=== PATIENT | female | born 1965 | race Caucasian/White ===

== ENCOUNTER 2024-05-13 07:16 | Day surgery (SDC) | payer OTHER, SELFPAY ==
--- NOTE | 2024-05-13 07:30 | FL_ITS ---
[address] [address] Patient Name: LUZ MARIA BADILLO MRN: [id number] date: 1965 Sex: F Assigned Patient Location: MRI Current Patient Location: Accession/Order Number: [id number] Exam Date: 05/13/2024 08:00 Report Date: 05/14/2024 05:00 At the request of: JUSTIN ROSENTHAL Procedure: FL guided needle placement EXAMINATION: FL arthrogram hip, FL guided needle placement HISTORY: Left hip impingement syndrome M25.852 FLUORO DOSE: Cannot be calculated. mGy Reference air kerma (Ka,r) COMPARISON: No relevant comparison available. TECHNIQUE: An arthrogram was performed under fluoroscopic guidance using non-ionic contrast material in the usual sterile manner after obtaining informed consent. Standard level fluoroscopic mode of operation utilized. FINDINGS: JOINT: Left hip NEEDLE: 25 gauge, 3.5 spinal needle. MEDICATION: 2 mL buffered 1% lidocaine for subcutaneous anesthesia. Approximately 8 mL injected into joint space consisting of a mixture of 5 mL Omnipaque-240, 5 mL 1% Xylocaine and 0.2 mL Dotarem. TECHNIQUE: Anterior approach under fluoroscopic guidance. CLINICAL: Decreased pain following the injection. COMPLICATIONS: None. OTHER: Negative. FL/FL guided needle placement IMPRESSION: 1. Technically successful arthrogram without complication. 2. Please see separate MRI arthrogram report. Electronically authenticated by: TRISTAN PONCE Date: 05/14/2024 05:00
--- NOTE | 2024-05-13 07:30 | FL_ITS ---
The [address] [address] Patient Name: LUZ MARIA BADILLO MRN: [id number] date: 1965 Sex: F Assigned Patient Location: MRI Current Patient Location: Accession/Order Number: [id number] Exam Date: 05/13/2024 08:00 Report Date: 05/14/2024 05:00 At the request of: JUSTIN ROSENTHAL Procedure: FL arthrogram hip EXAMINATION: FL arthrogram hip, FL guided needle placement HISTORY: Left hip impingement syndrome M25.852 FLUORO DOSE: Cannot be calculated. mGy Reference air kerma (Ka,r) COMPARISON: No relevant comparison available. TECHNIQUE: An arthrogram was performed under fluoroscopic guidance using non-ionic contrast material in the usual sterile manner after obtaining informed consent. Standard level fluoroscopic mode of operation utilized. FINDINGS: JOINT: Left hip NEEDLE: 25 gauge, 3.5 spinal needle. MEDICATION: 2 mL buffered 1% lidocaine for subcutaneous anesthesia. Approximately 8 mL injected into joint space consisting of a mixture of 5 mL Omnipaque-240, 5 mL 1% Xylocaine and 0.2 mL Dotarem. TECHNIQUE: Anterior approach under fluoroscopic guidance. CLINICAL: Decreased pain following the injection. COMPLICATIONS: None. OTHER: Negative. FL/FL arthrogram hip IMPRESSION: 1. Technically successful arthrogram without complication. 2. Please see separate MRI arthrogram report. Electronically authenticated by: TRISTAN PONCE Date: 05/14/2024 05:00
--- NOTE | 2024-05-13 07:30 | MR_ITS ---
[address] [address] Patient Name: LUZ MARIA BADILLO MRN: [id number] date: 1965 Sex: F Assigned Patient Location: MRI Current Patient Location: MRI Accession/Order Number: [id number] Exam Date: 05/13/2024 08:45 Report Date: 05/14/2024 09:10 At the request of: JUSTIN ROSENTHAL Procedure: MR hip LT w con EXAMINATION: MR hip LT w con HISTORY: Left hip impingement syndrome M25.852 ; chronic left hip pain COMPARISON: No relevant comparison available. TECHNIQUE: A comprehensive examination was performed utilizing a variety of imaging planes and imaging parameters to optimize visualization of suspected pathology. Images were obtained without and/or with IV contrast as indicated by type of examination. FINDINGS: FEMORAL HEAD: Tiny degenerative osteophytes along the articular margins of the femoral head.. No AVN, fracture, or significant arthropathy. ACETABULUM: No fracture or significant arthropathy. OTHER BONES: Normal appearance of the visualized portion of the pelvis. LABRUM: Suspect small tear involving the posterior superior labrum. EFFUSIONS: No joint effusion. Very tight/small joint capsule with difficulty injecting even a few mL of radiopaque contrast into the joint capsule during arthrography. BURSAE: Normal. No evidence of iliopsoas or trochanteric bursitis. TENDONS: Normal. Normal gluteus tendons, iliopsoas tendon, and hamstring origin. MUSCLES: Contrast is present within the musculature anterior to the hip secondary to arthrogram performed prior to MRI.. No tear or strain. No inappropriate atrophy. OTHER: Mild thinning of the articular cartilage. MR/MR hip LT w con IMPRESSION: 1. Small tight joint capsule of uncertain clinical significance. 2. Tiny degenerative osteophytes along the articular margins of the femoral head. 3. Mild joint space narrowing suggesting cartilage thinning; no focal tear. 3. Suspect tear of the posterior superior labrum. Electronically authenticated by: TRISTAN PONCE Date: 05/14/2024 09:10
[2024-05-13] MEDS: TRIAMCINOLONE ACETONIDE 40 MG/ML VIAL INJ (08:25)
[2024-05-13] MEDS: LIDOCAINE HCL 15 ML, SODIUM BICARBONATE 2 MEQ INJ (08:25)
== END 2024-05-13 08:45 | disposition home or self-care (01) ==
LOC: MRI 07:19
PROVIDERS: Radiology Diagnostic Radiology; Visit Provider Personal Emergency Response Attendant
DX: M25.852 Other specified joint disorders, left hip (principal)
CPT/HCPCS: 27093; 73722; 77002; A9575; J3301; Q9966